=== PATIENT | male | born 1945 | race African-American/Black ===

== ENCOUNTER → 2019-01-30 | Outpatient (CLI) | payer OTHER ==
[~2019-01-30] MED LIST: ADVAIR 250-501 EACH INH; CLEOCIN HCL150 MG PO; GLUCOVANCE 5-51 EACH PO; HYDROCHLOROTHIA25 M1 PO; LYRICA 50 MG50 MG PO; NORCO 5-325 TA1 EACH PO; NORVASC 5 MG TAB5 MG PO; SIMVASTATIN40 MG PO
== END ==
LOC: MRI 07:04 → EDSTATUS 15:05
DX: M75.101 Unspecified rotator cuff tear or rupture of right shoulder, not specified as traumatic (principal); M75.91 Shoulder lesion, unspecified, right shoulder; M19.011 Primary osteoarthritis, right shoulder; X58.XXXA Exposure to other specified factors, initial encounter; Y93.89 Activity, other specified; Y92.89 Other specified places as the place of occurrence of the external cause; Y99.8 Other external cause status